=== PATIENT | male | born 1965 | race Caucasian/White ===

== ENCOUNTER 2017-05-20 15:26 | Observation (INO) | payer MEDICAID ==
[~2017-05-20 15:26] MED LIST: BETAPACE 120 M120 MG PO; CALAN SR180 MG PO; CELEXA20 MG PO; GLUCOPHAGE1000 MG PO; HYDROCODONE-APA1 TAB PO; INVOKANA100 MG PO; JANUVIA100 MG PO; MIRAPEX1.5 MG PO; NORVASC10 MG PO; ZANTAC150 MG PO
[2017-05-20 16:47] LABS: BASOPHILS 0.2 % (0-2); EOSINOPHILS 0.4 % (0-7); HEMATOCRIT 44.9 % (42.0-54.0); HEMOGLOBIN 14.8 g/dL (13.5-17.5); IMMATURE GRANULOCYTES 0.4 % (0-5); LYMPHOCYTES 6.7 % (15-50); MCH 30.7 pg (26.0-34.0); MCV 93.2 fL (80.0-100.0); MEAN PLATELET VOLUME 11.4 fL (7.4-10.4); MONOCYTES 4.9 % (2-11); NEUTROPHILS 87.4 % (40-80); PLATELET COUNT 253 10x3/uL (130-400); RBC 4.82 10x6/uL (4.20-6.10); RDW 14.1 % (11.5-14.5)
[2017-05-20 17:01] LABS: ALBUMIN 3.2 g/dL (3.4-5.0); ANION GAP 15.5 mmol/L (8-16); BILIRUBIN - TOTAL 0.99 mg/dL (0.2-1.3); CALCIUM 8.5 mg/dL (8.5-10.1); CARBON DIOXIDE 20.9 mmol/L (21.0-32.0); CREATININE - SERUM 1.7 mg/dL (0.6-1.3); POTASSIUM - SERUM 5.4 mmol/L (3.5-5.1); PROTEIN - SERUM 7.7 g/dL (6.4-8.2)
--- NOTE | 2017-05-20 20:50 | NUR ---
REPORT RECEIVED FROM DEAN IRAHETA.
--- NOTE | 2017-05-20 21:27 | NUR ---
ARRIVED TO FLOOR VIA WHEELCHAIR, ACCOMPANIED BY HOSPITAL STAFF. ORIENTED TO UNIT AND PLACED ON TELEMETRY. CALL LIGHT IN REACH. WILL CONTINUE TO MONITOR. SEE NURSE ASSESSMENT.
[2017-05-20] MEDS ORDERED: GLIPIZIDE10 MG PO (21:47)
[2017-05-20] MEDS ORDERED: NEURONTIN600 MG PO (21:48)
[2017-05-20] MEDS ORDERED: XANAX1 MG PO (21:49)
[2017-05-20 21:51] VITALS: BP 138/109
[2017-05-20 22:00] VITALS: BP 138/109; BMI 37.3
--- NOTE | 2017-05-20 22:32 | NUR ---
DR. KINCAID PAGED, FOR SHORTNESS OF BREATH. AWAITING CALL BACK.
[2017-05-21] VITALS: BP 138/109
--- NOTE | 2017-05-21 01:17 | NUR ---
RESTING COMFORTABLY WITH EYES CLOSED, CALL LIGHT IN REACH. WILL CONTINUE TO MONITOR. URINAL AT BEDSIDE.
[2017-05-21 04:00] VITALS: BP 100/73
--- NOTE | 2017-05-21 07:30 | NUR ---
RECIEVED REPORT ON PATIENT, PATIENT IS ALERT AND ORIENTED AT THIS TIME. PATIENT HAS A L AC IV THAT IS SL AT THIS TIME. PATIENT IS AFIB ON MONITOR WITH A RATE OF 111. PATIENT IS ON 2L/MIN VIA NC WITH NAD NOTED AT THIS TIME. PATIENT BED IS LOW AND LOCKED AT THIS TIME. CALL LIGHT IN REACH. DENIES ANY NEEDS AT THIS TIME. CPOC
[2017-05-21 08:03] VITALS: BP 117/76
--- NOTE | 2017-05-21 08:30 | NUR ---
MORNING MEDICATIONS GIVEN, NO ISSUES. CPOC
[2017-05-21 10:12] VITALS: BMI 37.2
[2017-05-21 10:14] LABS: ANION GAP 14.5 mmol/L (8-16); CALCIUM 8.3 mg/dL (8.5-10.1); CARBON DIOXIDE 24.7 mmol/L (21.0-32.0)
[2017-05-21 10:17] LABS: POTASSIUM - SERUM 4.2 mmol/L (3.5-5.1)
--- NOTE | 2017-05-21 11:27 | NUR ---
FSBS 141, NO INSULIN REQUIRED
--- NOTE | 2017-05-21 12:26 | NUR ---
PATIENT REFUSING TO WEAR SCDS.
[2017-05-21 12:38] VITALS: BP 103/76
[2017-05-21 16:14] VITALS: BP 104/81
[2017-05-21 20:00] VITALS: BP 104/67
--- NOTE | 2017-05-21 20:06 | NUR ---
PT AWAKE, ALERT, ORIENTED, LYING IN BED, IV IS COMPLETELY INFILTRATED TO HIS LEFT A/C. IV REMOVED WITH CATH TIP INTACT. WILL RESITE. PT IS ASKING FOR PRN PAIN MEDICATION R/T INCREASED SIDE PAIN. WILL CONTINUE TO MONITOR CLOSELY. BED LOW, CALL LIGHT IN REACH, SIDE RAILS X 2, HOB 25-30 DEGREES.
--- NOTE | 2017-05-21 20:58 | NUR ---
PAGED DR. BRADEN FOR FURTHER ORDERS FOR PAIN MEDICATION. PT STATES HE TAKES NORCO 10/325 AT HOME. I DID RECEIVE A VERBAL ORDER FOR NORCO 10/325 1 PO Q 6 HOURS PRN MODERATE PAIN, AND TYLENOL 500MG 1 PO Q 4 PRN PAIN/FEVER. WILL CONTINUE TO MONITOR CLOSELY.
[2017-05-22 04:00] VITALS: BP 106/77
--- NOTE | 2017-05-22 04:42 | NUR ---
PT AWAKE, ALERT, ORIENTED, C/O PAIN IN HIS RT SIDE/RIB AREA, BUT THE NORCO DOES HELP. PT DENIES ANY OTHER NEEDS. CONTINUE TO MONITOR CLOSELY.
[2017-05-22 05:14] LABS: BASOPHILS 0.4 % (0-2); EOSINOPHILS 1.1 % (0-7); HEMOGLOBIN 13.4 g/dL (13.5-17.5); IMMATURE GRANULOCYTES 0.5 % (0-5); LYMPHOCYTES 17.1 % (15-50); MCH 30.2 pg (26.0-34.0); MCHC 32.7 g/dL (31.0-37.0); MCV 92.6 fL (80.0-100.0); MEAN PLATELET VOLUME 11.7 fL (7.4-10.4); NEUTROPHILS 72.9 % (40-80); RBC 4.43 10x6/uL (4.20-6.10); RDW 14.2 % (11.5-14.5); WBC 10.9 10x3/uL (4.8-10.8)
[2017-05-22 05:22] LABS: ANION GAP 13.8 mmol/L (8-16); CALCIUM 8.1 mg/dL (8.5-10.1); CARBON DIOXIDE 26.8 mmol/L (21.0-32.0); CREATININE - SERUM 1.6 mg/dL (0.6-1.3); PLATELET COUNT 198 10x3/uL (130-400); POTASSIUM - SERUM 3.6 mmol/L (3.5-5.1)
[2017-05-22 08:28] VITALS: BP 101/80
[2017-05-22] MEDS ORDERED: BETAPACE 80 MG80 MG PO (08:54)
[2017-05-22] MEDS ORDERED: XARELTO20 MG PO (08:59)
--- NOTE | 2017-05-22 09:30 | NUR ---
IV AND TELEMETRY DCD. DC PLANS GIVEN. UNDERSTANDING VOICED.
--- NOTE | 2017-05-22 10:47 | NUR ---
ESCORTED TO CAR BY W/C.
--- NOTE | 2017-05-25 12:01 | CN ---
PATIENT NAME:LAMONT CARTER MEDICAL RECORD: [id number] : 67 LOCATION:D.Emile D.2115 ADMIT DATE: 05/20/17 ACCOUNT: [id number] CONSULTING PHYSICIAN: JORGE OCAMPO MD REFERRING PHYSICIAN: REUBEN KINCAID MD DATE OF CONSULTATION: 05/21/2017 HISTORY OF PRESENT ILLNESS: A 52-year-old gentleman with a history of atrial fibrillation on sotalol and verapamil, difficulty with affording medications in the past, has a history of pacemaker placement. Currently resides in a motel. Presented with atrial fibrillation, RVR, has had a recent upper respiratory tract infection. This may explain reversion to atrial fibrillation. PAST MEDICAL HISTORY: 1. History of hypertension. 2. Atrial fibrillation. 3. Sick sinus syndrome. 4. Morbid obesity. ALLERGIES: None known. MEDICATIONS: Per MAR include sotalol 120 b.i.d., verapamil 180 b.i.d., Xanax 1 mg q.6 p.r.n., Neurontin 600 p.o. t.i.d., glipizide 10 b.i.d., metformin 1 gram b.i.d., Januvia 100 daily. SOCIAL HISTORY: Currently resides in a motel. No illicit drug use, nonsmoker and is able to take care of his ADLs. No set exercise program. REVIEW OF SYSTEMS: The patient reports easy bruising but reports no swollen glands. The patient reports no fever, no night sweats, no significant weight gain, no significant weight loss. No significant exercise tolerance. The patient reports no dry eyes, no irritation, no vision change. Patient reports no difficulty hearing and no ear pain. Patient reports no frequent nose bleeds or nose and sinus problems. Patient reports on arm pain on exertion. No shortness of breath while lying down. No history of heart murmur. Patient reports no cough, no wheezing or coughing up blood. Patient reports no abdominal pain, no vomiting. Normal appetite. No diarrhea and not vomiting blood. No nausea and no constipation. Patient reports no incontinence. No difficulty urinating. No hematuria. No increased frequency. Patient reports no muscle aches. No weakness, no arthralgias, no back pain. No swelling of the extremities. Patient reports no abnormal mole, no jaundice, no rashes. Reports no loss of consciousness. No weakness and no numbness. No seizures, dizziness, or headaches. The patient reports no depression, no sleep disturbance, feeling safe in a relationship and no alcohol abuse. Patient reports on fatigue. Reports no runny nose or sinus pressure. No itching, no hives, and no frequent sneezing. PHYSICAL EXAMINATION: GENERAL: Pleasant gentleman in no acute distress. VITAL SIGNS: Pulse 104, blood pressure 117/76. HEENT: Normocephalic, atraumatic. NECK: No JVD or bruit. HEART: Irregular. Rate is mildly tachycardic. LUNGS: Clear. ABDOMEN: Soft, nontender. CONSULT REPORT [id number] LAMONT CARTER EXTREMITIES: Pulses are 2+. There is 1+ edema. IMPRESSION: Atrial fibrillation with rapid ventricular response may be related to current upper respiratory tract infection plus or minus ability for compliance with the medications. We will increase sotalol to 160 b.i.d. Ideally would like him to be on NOAC and we will start Xarelto daily, perhaps can assist to the office with the drug assistance center. TRANSINT:[id number] Voice Confirmation ID: [id number] DOCUMENT ID: [id number] JORGE OCAMPO MD at 1201 CC: [id number] DICTATION DATE: 05/21/17810 CELL BIOLOGY SCIENTIST: 05/21/17 09 DIS IN 05/22/17 [id number] [place] [address]
--- NOTE | 2017-06-04 16:56 | EC ---
PATIENT:LAMONT CARTER DATE OF SERVICE: 05/20/17 SEX: M MEDICAL RECORD: [id number] DATE OF : 67 LOCATION:D.M2 D.211 AGE OF PATIENT: 52 ADMISSION DATE: 05/20/17 REFERRING PHYSICIAN: INTERPRETING PHYSICIAN: CHANDAN AGUILAR MD ECHOCARDIOGRAM REPORT ECHO CHARGES 4 ECHO COMPLETE CLINICAL DIAGNOSIS: AFIB HX OF PACEMAKER ECHOCARDIOGRAPHIC MEASUREMENTS (adult normal given) AC root (d.<3.7cm) 3.3 cm LV Septum d (<1.2 cm> 1.3 cm Valve Excursion 2.2 cm LV Septum (systole) 1.4 cm Left Atria (s.<4.0cm> 4.0 cm LVPW d(<1.2cm) 1.1 cm RV (d.<2.3cm) 5.1 cm LVPW (sytole) 1.6 cm LV diastole(<5.6CM) 5.6 cm MV E-F(>70mm/sec) cm LV systole 4.0 cm LVOT Diameter 2.0 cm MV exc.(>10mm) 1.6 cm Est.ejection fraction (50-75%) % Pericardial Effusion N DOPPLER: LVIT cm/sec A 99.0 cm/sec E cm/sec LA cm/sec RVSP 50 mmHg LVOT 72 cm/sec AOP1/2T m/s Asc. Ao 125 cm/sec RVOT 65 cm/sec RA cm/sec PA 90 cm/sec AV Gradient Peak 6.24 mmHg AV Mean 3.57 mmHg AV Area 1.9 cm MV Gradient Peak 6.45 mmHg MV Mean 2.19 mmHg MV Area cm COMMENTS: Sanforizer: Lilibeth DANIEL Member Services Coordinator: 3 Dr. Ayon TAPE# PACS DATE OF SERVICE: 05/21/2017 FINDINGS: 1. Left ventricular chamber size is upper limits of normal, left ventricular systolic function is moderately reduced, overall ejection fraction in the 30% to 35% range. 2. Left atrium is upper limits of normal at 4.0 cm. Right atrium and right ventricular chamber sizes are mildly dilated. 3. Valvular structures have normal structure and motion. 4. Doppler interrogation reveals mild to moderate mitral regurgitation, ECHOCARDIOGRAM REPORT [id number] LAMONT CARTER moderate tricuspid regurgitation, no other valvular insufficiency or stenosis; however, pulmonary systolic pressure is elevated estimated at 50 mmHg. 5. No evidence of pericardial effusion or left ventricular thrombus. TRANSINT:[id number] Voice Confirmation ID: [id number] DOCUMENT ID: [id number] CHANDAN AGUILAR MD at 1656 CC: [id number] DICTATION DATE: 05/21/17 1139 DOGGER: 05/21/17 1206 DIS IN 05/22/17 [place] [id number] [place] [id number]
== END 2017-05-22 10:48 | disposition home or self-care (01) ==
LOC: D.ER 15:26 → D.M2 20:28 → OBSVTIME 20:28 → D.M2 20:28
PROVIDERS: Emergency Medicine; ADMIT Family Medicine
DX: I48.91 Unspecified atrial fibrillation (principal); Z79.01 Long term (current) use of anticoagulants; Z95.0 Presence of cardiac pacemaker; E11.9 Type 2 diabetes mellitus without complications; E66.01 Morbid (severe) obesity due to excess calories; Z68.37 Body mass index [BMI] 37.0-37.9, adult; I10 Essential (primary) hypertension; J81.1 Chronic pulmonary edema; E86.9 Volume depletion, unspecified

== ENCOUNTER 2017-08-01 13:10 | Inpatient (IN) | payer MEDICARE ==
[~2017-08-01] VITALS: Ht 185.4 cm; Wt 126.1 kg
--- NOTE | ~2017-08-01 | CN ---
PATIENT NAME:LAMONT CARTER MEDICAL RECORD: [id number] : 67 LOCATION:[facility]IST[facility].2303 ADMIT DATE: 08/01/17 ACCOUNT: [id number] CONSULTING PHYSICIAN: KIRTI MONSIVAIS MD REFERRING PHYSICIAN: REUBEN KINCAID MD DATE OF CONSULTATION: 08/02/2017 CONSULT REQUESTING PHYSICIAN: Raza Christianson M.D. REASON FOR CONSULTATION: Dyspnea, pulmonary embolism, bilateral pleural effusion. HISTORY OF PRESENT ILLNESS: Mr. Carter is a 52-year-old gentleman who has a history of atrial fibrillation. The patient was supposed to be on Xarelto, but it looks like the patient is noncompliant. Came into the ER with worsening shortness of breath, orthopnea and PND. Denies any chest pain. While in the ER, he was given Cardizem and Levaquin at the same time. The patient becomes hypotensive. CTA was done, which confirmed pulmonary embolism in the right lower lobe as well as large right-sided pleural effusion with small on the left. His proBNP was also elevated. REVIEW OF SYSTEMS: Mainly in the history of present illness. PAST MEDICAL HISTORY: 1. Atrial fibrillation followed by Dr. Ayon. 2. Status post pacemaker placement. 3. Hypertension. 4. Obstructive sleep apnea. The patient is noncompliant. PAST SURGICAL HISTORY: Status post pacemaker placement. ALLERGIES: There are no known drug allergies, POSSIBLE HE HAS ALLERGY TO LEVAQUIN. PERSONAL AND SOCIAL HISTORY: The patient is a nonsmoker, nondrinker, but he does have secondhand exposure to smoking. FAMILY HISTORY: Noncontributory. PHYSICAL EXAMINATION: GENERAL: Now, the patient is sitting in chair. He is not in acute distress. VITAL SIGNS: The blood pressure is 113/77, pulse is from 97-109 and irregular, temperature 97.7, SpO2 98% on 8 liters oxymizer. HEENT: Conjunctivae pink, sclerae nonicteric. NECK: Supple, no JVD. CHEST: There are bilateral crackles. There is dullness of percussion on the right side. HEART: Rate and rhythm is irregular, normal sounds. No murmur. ABDOMEN: Soft. Bowel sounds present. No hepatosplenomegaly. RECTAL: Deferred. EXTREMITIES: No cyanosis, no clubbing. There is 2+ pedal edema. SKIN: Warm, normal turgor. CENTRAL NERVOUS SYSTEM: The patient is awake and alert. There is no obvious cranial nerve abnormality. The gait was not tested. CONSULT REPORT [id number] LAMONT CARTER IMAGING: CTA of the chest: There is right-sided PE. There is a large right-sided pleural effusion, small on the left. LABORATORY DATA: CBC: WBC 9000, hemoglobin 15.3, hematocrit 46.1 and the platelet count 269. Chemistry: Sodium 135, potassium 4.6, chloride 96, BUN is 28, creatinine 1.9, glucose 192. The proBNP is 9479, troponin less than 0.017. Creatinine 1.9. IMPRESSION: 1. Acute hypoxic respiratory failure, which is multifactorial. A. Pulmonary edema, pleural effusion. B. Pulmonary embolism. C. Atelectasis right lower lobe, I will doubt pneumonia. 2. Congestive heart failure, possible chronic systolic dysfunction. 3. Atrial fibrillation. 4. Bilateral pleural effusion. 5. Acute renal failure. 6. Diabetes mellitus type 2. 7. Pulmonary hypertension, moderate to severe degree, most likely secondary to obstructive sleep apnea and congestive heart failure. 8. Possible hypercoagulable state, but the patient is noncompliant with Xarelto. RECOMMENDATION: 1. Start on Lasix. Adjust antibiotic dosage empirically. 2. Lovenox 100 mg subQ b.i.d. 3. Consult nephrology. 4. Cardiology has already been consulted. 5. Supplemental oxygen, BiPAP at night if required. Check factor V Leiden. Dr. Christianson, thank you for involving me in the care of Mr. Carter. TRANSINT:[id number] Voice Confirmation ID: [id number] DOCUMENT ID: [id number] KIRTI MONSIVAIS MD at 1406 CC: RAZA CHRISTIANSON MD [id number] DICTATION DATE: 08/02/[address] MAINTENANCE TECHNICIAN: 08/02/17 1743 DIS IN 08/04/17 [id number] [place] [address]
--- NOTE | ~2017-08-01 | EC ---
PATIENT:LAMONT CARTER DATE OF SERVICE: 08/01/17 SEX: M MEDICAL RECORD: [id number] DATE OF : 67 [facility] AGE OF PATIENT: 52 ADMISSION DATE: 08/01/17 REFERRING PHYSICIAN: INTERPRETING PHYSICIAN: FELISA ARENAS MD ECHOCARDIOGRAM REPORT ECHO CHARGES 4 ECHO COMPLETE CLINICAL DIAGNOSIS: CHF/ASSESS FOR EMBOLUS IN VENTRICLE ECHOCARDIOGRAPHIC MEASUREMENTS (adult normal given) AC root (d.<3.7cm) 3.3 cm LV Septum d (<1.2 cm> 1.0 cm Valve Excursion 1.7 cm LV Septum (systole) 1.4 cm Left Atria (s.<4.0cm> 4.4 cm LVPW d(<1.2cm) 1.2 cm RV (d.<2.3cm) 5.9 cm LVPW (sytole) 1.5 cm LV diastole(<5.6CM) 5.6 cm MV E-F(>70mm/sec) cm LV systole 5.1 cm LVOT Diameter 2.1 cm MV exc.(>10mm) 1.8 cm Est.ejection fraction (50-75%) % Pericardial Effusion N DOPPLER: LVIT cm/sec A 83.0 cm/sec E 62.0 cm/sec LA cm/sec RVSP 43 mmHg LVOT 73 cm/sec AOP1/2T m/s Asc. Ao 97 cm/sec RVOT cm/sec RA cm/sec PA cm/sec AV Gradient Peak 3.79 mmHg AV Mean 1.88 mmHg AV Area 3.0 cm MV Gradient Peak 6.45 mmHg MV Mean 1.76 mmHg MV Area cm COMMENTS: Market Development Director: Lilibeth DANIEL Web Mobile Designer: 4 Dr. Arenas TAPE# PACS DATE OF SERVICE: 08/02/2017 FINDINGS: 1. The left ventricle is mildly dilated. There are no regional wall motion abnormalities, but there is global hypokinesis. The patient is in atrial fibrillation and at times the R-R interval is long. The LV function appears to be better but, on average, the patient's ejection fraction appears to be in the 25% to 30% range. 2. The left atrium is mildly enlarged. 3. The right atrium is severely dilated. ECHOCARDIOGRAM REPORT [id number] LAMONT CARTER 4. The right ventricle is severely dilated. 5. The mitral valve has mild mitral regurgitation. 6. The tricuspid valve has moderate tricuspid regurgitation with right ventricular systolic pressure estimated at 53 mmHg, indicating [id number]-vavkxzrl pulmonary hypertension. 7. The pulmonic valve is normal. CONCLUSIONS: The patient has evidence of nonischemic cardiomyopathy, dilatation, and elevation of right-sided pressures. The right ventricle actually appears to be somewhat hyperdynamic with suggestion of sudden pressure overload such as pulmonary embolism. TRANSINT:[id number] Voice Confirmation ID: [id number] DOCUMENT ID: [id number] 08/10/2017 Edited to correct date of service, dmm. FELISA ARENAS MD at 1353 CC: [id number] DICTATION DATE: 08/03/17 1130 COMMERCIAL SEWING INSTRUCTOR: 08/03/17 1226 DIS IN 08/04/17 [facility] [address] [place] [address]
--- NOTE | ~2017-08-01 | DS ---
PATIENT:LAMONT CARTER :67 MEDICAL RECORD: [id number] DISCHARGE SUMMARY ADMISSION DATE: 08/01/17 DISCHARGE DATE: 08/04/17 DATE OF ADMISSION: 08/01/2017 DATE OF DISCHARGE: 08/04/2017 ADMIT DIAGNOSIS: Irleg-sj-mopqozs respiratory failure. PRINCIPAL DIAGNOSIS: Pulmonary embolism without acute cor pulmonale. OTHER DIAGNOSES: Include acute respiratory failure with hypoxia; pneumonia; atelectasis; acute kidney failure; hypertensive heart disease with heart failure; heart failure unspecified; type 2 diabetes mellitus with diabetic neuropathy; pulmonary hypertension; obstructive sleep apnea; the patient's noncompliance is with medication regimen; chronic atrial fibrillation; long-term use of anticoagulants; presence of cardiac pacemaker; proteinuria; morbid obesity; body mass index of 37 to 37.9; other specified disorders of veins; adverse effects to systemic anti-infection, anti-parasitic initiation; cardiac arrest. CONSULTATIONS: 1. Pulmonology, Lavell Escobar MD 2. Nephrology, Josue Melton MD 3. Cardiology, Farhad Sandra MD The patient was in critical condition, and then on August 04, the patient had series of code blues. Dr. Kemp responded to the code blue in bed 2303 in the ICU. The patient was in PEA, pulse degraded, then had a brief run of pulseless V-tach, which was cardioverted with marginal success, and the PEA returned and the patient became asystolic. After 15 minutes, the code was called. The patient on 08/04/2017. TRANSINT:[id number] Voice Confirmation ID: [id number] DOCUMENT ID: [id number] REUBEN KINCAID MD at 1737 CC: [id number] DICTATION DATE: 09/15/17 1423 PMO BUSINESS ANALYST: 09/16/17 0807 DIS IN 08/04/17 [id number] [place] [address]
[~2017-08-01 13:10] MED LIST changes: +BETAPACE 80 MG80 MG PO; +GLIPIZIDE10 MG PO; +NEURONTIN600 MG PO; +XANAX1 MG PO; +XARELTO20 MG PO
[2017-08-01 13:30] LABS: APPEARANCE HAZY (CLEAR); BILIRUBIN NEGATIVE (NEGATIVE); COLOR YELLOW (YELLOW); GLUCOSE NEGATIVE (NEGATIVE); KETONE NEGATIVE (NEGATIVE); NITRITE NEGATIVE (NEGATIVE); PROTEIN 1+ mg/dL (NEGATIVE); SPECIFIC GRAVITY 1.015 (1.005-1.020); UROBILINOGEN NORMAL (NORMAL)
[2017-08-01 13:32] LABS: BACTERIA MODERATE /hpf (NONE SEEN); EPITHELIAL CELLS 0-5 /hpf (0-5); RED CELLS - URINE 0-5 /hpf (0-5); WHITE CELLS - URINE 0-5 /hpf (0-5)
[2017-08-01 13:46] LABS: BASOPHILS 0.5 % (0-2); EOSINOPHILS 2.6 % (0-7); HEMATOCRIT 46.1 % (42.0-54.0); HEMOGLOBIN 15.3 g/dL (13.5-17.5); IMMATURE GRANULOCYTES 0.3 % (0-5); LYMPHOCYTES 14.9 % (15-50); MCH 30.7 pg (26.0-34.0); MCHC 33.2 g/dL (31.0-37.0); MCV 92.4 fL (80.0-100.0); MEAN PLATELET VOLUME 12.1 fL (7.4-10.4); MONOCYTES 8.1 % (2-11); NEUTROPHILS 73.6 % (40-80); RBC 4.99 10x6/uL (4.20-6.10); RDW 14.9 % (11.5-14.5); WBC 9.8 10x3/uL (4.8-10.8)
[2017-08-01 13:47] LABS: PLATELET COUNT 269 10x3/uL (130-400)
[2017-08-01 14:10] LABS: ALBUMIN 3.4 g/dL (3.4-5.0); ALKALINE PHOSPHATASE 109 U/L (46-116); ALT (SGPT) 24 U/L (10-68); BILIRUBIN - TOTAL 2.46 mg/dL (0.2-1.3); CALC OSMOLALITY 276 mosm/kg (275-300); CALCIUM 9.1 mg/dL (8.5-10.1); CARBON DIOXIDE 26.1 mmol/L (21.0-32.0); CHLORIDE - SERUM 100 mmol/L (98-107); CREATININE - SERUM 1.4 mg/dL (0.6-1.3); GLUCOSE 160 mg/dL (74-106); POTASSIUM - SERUM 4.2 mmol/L (3.5-5.1); SODIUM 136 mmol/L (136-145); UREA NITROGEN 18 mg/dL (7-18); eGFR NON AFRICAN AMERICAN 57 mL/min (90-120)
[2017-08-01 14:29] LABS: CREATINE KINASE 69 UL (21-232); MAGNESIUM - SERUM 1.8 mg/dL (1.8-2.4); PRO BNP 9479 pg/mL (0-125); THYROID STIMULATING HORMONE 1.62 uIU/mL (0.36-3.74)
[2017-08-01 14:30] LABS: TROPONIN-I < 0.017 ng/mL (0.000-0.060)
[2017-08-01] MEDS ORDERED: VIBRAMYCIN 100100 M1 IV (18:50)
[2017-08-01 19:00] VITALS: BP 103/71
[2017-08-01 19:35] VITALS: BP 110/78; BMI 37.8
[2017-08-01 20:00] VITALS: BP 105/79
[2017-08-01 21:00] VITALS: BP 108/82
[2017-08-01 22:00] VITALS: BP 104/83
[2017-08-01 23:00] VITALS: BP 123/94
[2017-08-02] VITALS (24 sets, daily range): BP systolic 90–121; BP diastolic 54–95
[2017-08-02 05:29] LABS: BASOPHILS 0.1 % (0-2); EOSINOPHILS 0.1 % (0-7); HEMATOCRIT 47.7 % (42.0-54.0); HEMOGLOBIN 15.8 g/dL (13.5-17.5); IMMATURE GRANULOCYTES 0.2 % (0-5); LYMPHOCYTES 8.3 % (15-50); MCH 30.7 pg (26.0-34.0); MCHC 33.1 g/dL (31.0-37.0); MCV 92.8 fL (80.0-100.0); MEAN PLATELET VOLUME 11.9 fL (7.4-10.4); MONOCYTES 2.5 % (2-11); NEUTROPHILS 88.8 % (40-80); PLATELET COUNT 216 10x3/uL (130-400); RBC 5.14 10x6/uL (4.20-6.10); RDW 14.7 % (11.5-14.5)
[2017-08-02 05:38] LABS: ANION GAP 14.9 mmol/L (8-16); CALCIUM 9.5 mg/dL (8.5-10.1); CARBON DIOXIDE 28.7 mmol/L (21.0-32.0); POTASSIUM - SERUM 4.6 mmol/L (3.5-5.1)
[2017-08-02 05:44] LABS: CREATININE - SERUM 1.9 mg/dL (0.6-1.3)
[2017-08-03] VITALS (17 sets, daily range): BP systolic 90–124; BP diastolic 57–87; Ht 185.4 cm; Wt 126.1 kg
[2017-08-03 04:25] LABS: BASOPHILS 0.1 % (0-2); EOSINOPHILS 0.1 % (0-7); HEMATOCRIT 43.2 % (42.0-54.0); HEMOGLOBIN 14.1 g/dL (13.5-17.5); IMMATURE GRANULOCYTES 0.3 % (0-5); LYMPHOCYTES 8.5 % (15-50); MCH 29.9 pg (26.0-34.0); MCHC 32.6 g/dL (31.0-37.0); MCV 91.5 fL (80.0-100.0); MEAN PLATELET VOLUME 12.1 fL (7.4-10.4); MONOCYTES 7.8 % (2-11); NEUTROPHILS 83.2 % (40-80); PLATELET COUNT 243 10x3/uL (130-400); RBC 4.72 10x6/uL (4.20-6.10); RDW 14.8 % (11.5-14.5)
[2017-08-03 04:32] LABS: WBC 14.3 10x3/uL (4.8-10.8)
[2017-08-03 04:53] LABS: ANION GAP 12.6 mmol/L (8-16); CALCIUM 8.8 mg/dL (8.5-10.1); CARBON DIOXIDE 29.5 mmol/L (21.0-32.0); CREATININE - SERUM 1.6 mg/dL (0.6-1.3); POTASSIUM - SERUM 4.1 mmol/L (3.5-5.1); URIC ACID 10.3 mg/dL (2.6-7.2)
[2017-08-04] VITALS: BP 120/54
[2017-08-04 04:00] VITALS: BP 128/85
[2017-08-04 09:16] VITALS: BP 99/73
[2017-08-04 10:43] LABS: BASOPHILS 0.2 % (0-2); EOSINOPHILS 0.2 % (0-7); IMMATURE GRANULOCYTES 1.6 % (0-5); LYMPHOCYTES 14.6 % (15-50); MCH 30.9 pg (26.0-34.0); MEAN PLATELET VOLUME 12.3 fL (7.4-10.4); MONOCYTES 14.3 % (2-11); NEUTROPHILS 69.1 % (40-80); PLATELET COUNT 260 10x3/uL (130-400); WBC 12.2 10x3/uL (4.8-10.8)
[2017-08-04 11:00] LABS: ALBUMIN 3.5 g/dL (3.4-5.0); ANION GAP 22.1 mmol/L (8-16); BILIRUBIN - TOTAL 2.21 mg/dL (0.2-1.3); CALCIUM 8.9 mg/dL (8.5-10.1); CARBON DIOXIDE 23.6 mmol/L (21.0-32.0); MAGNESIUM - SERUM 2.2 mg/dL (1.8-2.4); PROTEIN - SERUM 8.2 g/dL (6.4-8.2)
[2017-08-04 11:01] LABS: CREATININE - SERUM 2.7 mg/dL (0.6-1.3); PHOSPHOROUS 7.7 mg/dL (2.5-4.9)
[2017-08-04 11:03] LABS: POTASSIUM - SERUM 6.7 mmol/L (3.5-5.1)
[2017-08-04 11:04] LABS: HEMATOCRIT 54.5 % (42.0-54.0); MCV 93.5 fL (80.0-100.0); RBC 5.83 10x6/uL (4.20-6.10)
[2017-08-04 11:13] LABS: SPE - A/G RATIO 0.9 (0.7-1.7); SPE - ALBUMIN 3.4 g/dL (2.9-4.4); SPE - ALPHA-1 GLOBULIN 0.1 g/dL (0.0-0.4); SPE - ALPHA-2 GLOBULIN 0.6 g/dL (0.4-1.0); SPE - BETA GLOBULIN 1.2 g/dL (0.7-1.3); SPE - GAMMA GLOBULIN 1.9 g/dL (0.4-1.8); SPE - M-SPIKE 0.2 g/dL (Not Observed); SPE - TOTAL PROTEIN 7.3 g/dL (6.0-8.5)
[2017-08-04 11:47] VITALS: BP 110/73
== END 2017-08-04 14:20 | DRG 208 ==
LOC: D.ER 13:10 → D.MS 17:20 → D.CVICU 17:20 → D.MS 08-03 18:36 → D.ICU 08-04 12:34
PROVIDERS: Emergency Medicine; Internal Medicine Nephrology; Internal Medicine Pulmonary Disease
PROC: 0BH17EZ Insertion of Endotracheal Airway into Trachea, Via Natural or Artificial Opening (ICD-10-PCS; principal; 2017-08-04)
PROC: 5A1935Z Respiratory Ventilation, Less than 24 Consecutive Hours (ICD-10-PCS; 2017-08-04)
DX: I26.99 Other pulmonary embolism without acute cor pulmonale (principal); J96.01 Acute respiratory failure with hypoxia; J18.9 Pneumonia, unspecified organism; J98.11 Atelectasis; N17.9 Acute kidney failure, unspecified; I11.0 Hypertensive heart disease with heart failure; I50.9 Heart failure, unspecified; E11.40 Type 2 diabetes mellitus with diabetic neuropathy, unspecified; I27.20 Pulmonary hypertension, unspecified; G47.33 Obstructive sleep apnea (adult) (pediatric); Z91.14 Patient's other noncompliance with medication regimen; I48.2 Chronic atrial fibrillation; Z79.01 Long term (current) use of anticoagulants; Z95.0 Presence of cardiac pacemaker; R80.9 Proteinuria, unspecified; E66.01 Morbid (severe) obesity due to excess calories; Z68.37 Body mass index [BMI] 37.0-37.9, adult; I87.8 Other specified disorders of veins; T37.8X5A Adverse effect of other specified systemic anti-infectives and antiparasitics, initial encounter; Y92.238 Other place in hospital as the place of occurrence of the external cause; I46.9 Cardiac arrest, cause unspecified